=== PATIENT | male | born 1985 | race Caucasian/White ===

== ENCOUNTER 2017-01-02 01:11 | Inpatient (IN) | payer OTHER ==
[~2017-01-02] VITALS: Ht 182.9 cm; Wt 78.5 kg
[2017-01-02 01:15] VITALS: BP 158/99; RESP 18
[2017-01-02 01:23] VITALS: Ht 182.9 cm; Wt 78.5 kg
[2017-01-02] MEDS ORDERED: ONDANSETRON 4 MG INJ IV PRN ×2 (02:00→08:00)
[2017-01-02] MEDS: morphine 2 MG INJ IV PRN ×4 (02:12→18:58)
[2017-01-02] MEDS: DEXTROSE 5%-0.45% NACL 1,000 ML IV SCH ×4 (02:12→22:00)
[2017-01-02 02:44] VITALS: BP 100/59; RESP 18
[2017-01-02] MEDS ORDERED: LORAZEPAM 2 MG INJ IV ONE ×2 (03:30→22:30)
[2017-01-02] MEDS ORDERED: ONDANSETRON INJ 8 MG in DEXTROSE 5% 50 ML IV ONE (03:30)
[2017-01-02] MEDS: PIPER-TAZO 3.375 GM IV (PMX) 50 ML IVPB SCH ×2 (05:22→14:37)
[2017-01-02 05:38] LABS: BASOPHILS % 0.2 % (0.0-2.0); HEMATOCRIT 43.8 % (42.0-52.0); HEMOGLOBIN 14.2 g/dl (14.0-18.0); LYMPHOCYTES # 1.3 10^3/ul (0.8-2.9); LYMPHOCYTES % 9.2 % (15.0-51.0); MEAN CORPUSCULAR HEMOGLOBIN 22.8 pg (29.0-33.0); MEAN CORPUSCULAR HGB CONC 32.4 g/dl (32.0-37.0); MEAN CORPUSCULAR VOLUME 70.3 fl (82.0-101.0); MEAN PLATELET VOLUME 10.2 fl (7.4-10.4); MONOCYTE # 0.7 10^3/ul (0.3-0.9); MONOCYTES % 5.3 % (0.0-11.0); NEUTROPHIL # 11.6 10^3/ul (1.6-7.5); NEUTROPHILS % 84.9 % (39.0-77.0); PLATELET COUNT 286 10^3/UL (140-415); RED BLOOD COUNT 6.23 10^6/ul (4.70-6.10); RED CELL DISTRIBUTION WIDTH 13.8 % (11.5-14.5); WHITE BLOOD COUNT 13.7 10^3/ul (4.8-10.8)
[2017-01-02 06:04] LABS: ALBUMIN/GLOBULIN RATIO 1.33; BILIRUBIN,INDIRECT 0.3 mg/dl (0-1.1); BILIRUBIN,TOTAL 0.3 mg/dl (0.2-1.3); CALCIUM 9.1 mg/dl (8.4-10.2); CREATININE 1.22 mg/dl (0.61-1.24); MAGNESIUM 1.8 mg/dl (1.7-2.5); POTASSIUM 4.3 mmol/L (3.5-5.1)
--- NOTE | 2017-01-02 07:33 | HP ---
Date/Time of Note Date/Time of Note DATE: 01/02/17 TIME: 07:29 Assessment/Plan VTE Prophylaxis VTE Prophylaxis Intervention: SCD's Lines/Catheters IV Catheter Type (from Nrsg): Peripheral IV Assessment/Plan Assessment/Plan ASSESSMENT 31-year-old male with abdominal pain, nonbloody nonbilious vomiting and diarrhea , likely secondary to viral gastroenteritis. Unlikely from possible partial SBO seen on outside CT. PLAN Keep n.p.o. with IV fluid for now Provide pain medications and antiemetics Will order KUB and small bowel follow-through Consider surgery consult depending on above results HPI/ROS Admit Date/Time Admit Date/Time Jan 02, 2017 at 01:11 Hx of Present Illness This is a 31-year-old male who initially presented to [facility] complaining of abdominal pain, nausea, vomiting, diarrhea. Vomiting is described as nonbilious nonbloody and diarrhea was watery with no blood. Abdominal pain is diffuse. He denied distention. He said a few days ago, he is a roommate in him started having "flu", which he described as nasal congestion and cough. A day or two later, he started having the abdominal pain , diarrhea and vomiting as described earlier. Last diarrhea was yesterday. CT abdomen pelvis at the outside hospital showed probable partial small bowel obstruction. He was transferred to [facility] because of insurance reasons. Once he was admitted, he continued to have nausea and has had one episode of vomiting. PMH/Family/Social Social History Smoking Status: Never smoker Exam/Review of Systems Vital Signs Vitals Vital Signs Date Time Temp Pulse Resp B/P Pulse Ox O2 Delivery O2 Flow Rate FiO2 01/02/17 02:44 98.5 92 18 100/59 99 Intake and Output 01/01/17 01/01/17 01/02/17 15:00 23:00 07:00 Intake Total 558 ml Balance 558 ml Exam Constitutional: other (Looks mildly uncomfortable) Head: atraumatic, normocephalic Eyes: EOMI, PERRL Respiratory: clear to auscultation, normal air movement Cardiovascular: nl pulses, regular rate and rhythm Gastrointestinal: soft, tender Extremities: normal pulses Labs Result Diagram: 01/02/1751601/02/17516 Medications Medications Current Medications Dextrose/Sodium Chloride (D5-1/2ns) 1,000 ml @ 100 mls/hr Q10H IV Last administered on 01/02/17 02:12; Admin Dose 100 MLS/HR; Start 01/02/17 at 02:00 Morphine Sulfate 2 mg 2 mg Q4H PRN IV PAIN Last administered on 01/02/17 02:12 ; Admin Dose 2 MG; Start 01/02/17 at 02:00 Piperacillin Sod/ Tazobactam Sod 50 ml @ 100 mls/hr Q8 IVPB Last administered on 01/02/17 05:22; Admin Dose 100 MLS/HR; Start 01/02/17 at 06:00 Ondansetron HCl/ Dextrose (Zofran Inj/D5W) 54 ml @ 108 mls/hr Q6H PRN IV NAUSEA AND/OR VOMITING; Start 01/02/17 at 08:00 NIMA HERNÁNDEZ MD Jan 02, 2017 07:33
[2017-01-02 08:01] VITALS: BP 146/97; RESP 20
[2017-01-02] MEDS: ONDANSETRON INJ 8 MG in DEXTROSE 5% 50 ML IV PRN ×2 (09:03→20:07)
--- NOTE | 2017-01-02 09:14 | RADRPT ---
PROCEDURE: XR Abdomen. CLINICAL INDICATION: Abdomen pain. TECHNIQUE: AP supine abdomen x-ray. COMPARISON: None. FINDINGS: The bowel gas pattern is normal. There is no evidence of obstruction. There are no abnormal calcifications overlying the urinary tracts. The osseus structures are unremarkable. IMPRESSION: 1. Unremarkable abdomen radiograph. RPTAT: QQ .Trevon Smith MD, MD Date Time Electronically viewed and signed by .Trevon Smith MD, MD on 01/02/2017 09:14 .R/
[2017-01-02] MEDS: PROCHLORPERAZINE 10 MG INJ IV PRN ×2 (12:29→19:16)
--- NOTE | 2017-01-02 15:37 | PN ---
Date/Time of Note Date/Time of Note DATE: 01/02/17 TIME: 15:35 Assessment/Plan VTE Prophylaxis VTE Prophylaxis Intervention: SCD's Lines/Catheters IV Catheter Type (from Nrsg): Peripheral IV Assessment/Plan Assessment/Plan 1. acute gastroenteritis, likely viral, improving, protonix/IVF, start liquid diet Subjective 24 Hr Interval Summary Free Text/Dictation no diarrhea today, no vomiting. still has abdominal pain. no fever or chills Exam/Review of Systems Vital Signs Vitals Vital Signs Date Time Temp Pulse Resp B/P Pulse Ox O2 Delivery O2 Flow Rate FiO2 01/02/17 08:01 99.0 75 20 146/97 97 Intake and Output 01/01/17 01/01/17 01/02/17 15:00 23:00 07:00 Intake Total 558 ml Balance 558 ml Exam Constitutional: alert, oriented, well developed Psych: nl mood/affect, no complaints Head: atraumatic, normocephalic Eyes: EOMI, nl conjunctiva, nl lids ENMT: nl external ears & nose, nl lips & teeth, nl nasal mucosa & septum Neck: non-tender, supple Respiratory: clear to auscultation, normal air movement, No congested cough, No crackles/rales, No diminished breath sounds, No intercostal retraction, No labored breathing, No other, No respirations, No tactile fremitus, No wheezing Cardiovascular: nl pulses, regular rate and rhythm, No S3, No S4, No bruits, No diastolic murmur, No edema, No gallop, No irregular rhythm, No jugular venous distention (JVD), No murmurs/extra sounds, No other, No rub, No systolic murmur Gastrointestinal: nl liver, spleen, soft Musculoskeletal: nl extremities to inspection Extremities: normal pulses, No calf tenderness, No clubbing, No cyanosis, No edema, No other, No palpable cord, No pitting pedal edema, No tenderness Neurological: COMMUNITY ADMINISTRATOR II-XII intact, nl mental status, nl speech, nl strength Skin: nl turgor Lymph: nl lymph nodes Results Result Diagram: 01/02/1717 01/02/1717 Results 24 hrs Laboratory Tests Test 01/02/17 05:17 White Blood Count 13.7 H Red Blood Count 6.23 H Hemoglobin 14.2 Hematocrit 43.8 Mean Corpuscular Volume 70.3 L Mean Corpuscular Hemoglobin 22.8 L Mean Corpuscular Hemoglobin Concent 32.4 Red Cell Distribution Width 13.8 Platelet Count 286 Mean Platelet Volume 10.2 Neutrophils % 84.9 H Lymphocytes % 9.2 L Monocytes % 5.3 Eosinophils % 0.0 Basophils % 0.2 Nucleated Red Blood Cells % 0.0 Neutrophils # 11.6 H Lymphocytes # 1.3 Monocytes # 0.7 Eosinophils # 0.0 Basophils # 0.0 Nucleated Red Blood Cells # 0.0 Sodium Level 143 Potassium Level 4.3 Chloride Level 108 Carbon Dioxide Level 26 Anion Gap 13 Blood Urea Nitrogen 14 Creatinine 1.22 Glucose Level 135 Calcium Level 9.1 Phosphorus Level 3.0 Magnesium Level 1.8 Total Bilirubin 0.3 Direct Bilirubin 0.00 Indirect Bilirubin 0.3 Aspartate Amino Transf (AST/SGOT) 41 Alanine Aminotransferase (ALT/SGPT) 48 Alkaline Phosphatase 56 Total Protein 7.0 Albumin 4.0 Globulin 3.00 Albumin/Globulin Ratio 1.33 Medications Medications Current Medications Dextrose/Sodium Chloride (D5-1/2ns) 1,000 ml @ 100 mls/hr Q10H IV Last administered on 01/02/17 14:37; Admin Dose 100 MLS/HR; Start 01/02/17 at 02:00 Morphine Sulfate 2 mg 2 mg Q4H PRN IV PAIN Last administered on 01/02/17 12:44 ; Admin Dose 2 MG; Start 01/02/17 at 02:00 Piperacillin Sod/ Tazobactam Sod 50 ml @ 100 mls/hr Q8 IVPB Last administered on 01/02/17 14:37; Admin Dose 100 MLS/HR; Start 01/02/17 at 06:00 Ondansetron HCl/ Dextrose (Zofran Inj/D5W) 54 ml @ 108 mls/hr Q6H PRN IV NAUSEA AND/OR VOMITING Last administered on 01/02/17 09:03; Admin Dose 108 MLS/ HR; Start 01/02/17 at 08:00 Prochlorperazine (Compazine Inj) 5 mg Q6 PRN IV NAUSEA AND/OR VOMITING Last administered on 01/02/17 12:29; Admin Dose 5 MG; Start 01/02/17 at 12:30 MELO WOLF MD Jan 02, 2017 15:37
[2017-01-02] MEDS: LEVOFLOXACIN 250MG/D5W (PMX) 50 ML IVPB SCH (17:05)
[2017-01-02 20:34] VITALS: BP 150/82; RESP 18
[2017-01-02] MEDS: METOCLOPRAMIDE 10 MG INJ IV PRN (22:34)
[2017-01-03 03:28] VITALS: BP 109/58; RESP 18
[2017-01-03] MEDS: PANTOPRAZOLE (EC) 40 MG TAB PO SCH (05:11)
[2017-01-03] MEDS: METOCLOPRAMIDE 10 MG INJ IV PRN ×2 (05:12→13:48)
[2017-01-03] MEDS: DEXTROSE 5%-0.45% NACL 1,000 ML IV SCH ×2 (05:12→17:13)
[2017-01-03] MEDS: morphine 2 MG INJ IV PRN ×4 (05:12→20:24)
[2017-01-03 06:38] LABS: CALCIUM 8.7 mg/dl (8.4-10.2); CREATININE 1.17 mg/dl (0.61-1.24); MAGNESIUM 1.9 mg/dl (1.7-2.5); POTASSIUM 3.8 mmol/L (3.5-5.1)
[2017-01-03 07:47] VITALS: BP 113/55; RESP 16
[2017-01-03] MEDS ORDERED: DIATR MEGLU/DIATRIZOATE SODIUM 120 ML BTL ONE (08:58)
--- NOTE | 2017-01-03 10:21 | RADRPT ---
PROCEDURE: Small bowel follow-through. CLINICAL INDICATION: Abdomen pain. TECHNIQUE: Water-soluble contrast was administered orally and several overhead radiographs of the abdomen were obtained. 8 images were obtained. COMPARISON: Abdomen radiograph dated 01/02/2017. FINDINGS: The preliminary radiograph is normal. There is no small bowel displacement or mass. The small bowel folds are normal. There is no evidence of obstruction. Transit time is normal with contrast in the colon at 1 hour. The 1 hour image demonstrates most of the contrast in the distal ileum and colon.. IMPRESSION: 1. Normal small bowel follow-through. RPTAT: QQ .Trevon Smith MD, MD Date Time Electronically viewed and signed by .Trevon Smith MD, on 01/03/2017 10:20 .R/
[2017-01-03] MEDS: PROCHLORPERAZINE 10 MG INJ IV PRN ×2 (10:30→15:54)
[2017-01-03 14:14] VITALS: BP 131/86; RESP 16
--- NOTE | 2017-01-03 14:26 | PN ---
Date/Time of Note Date/Time of Note DATE: 01/03/17 TIME: 14:25 Assessment/Plan VTE Prophylaxis VTE Prophylaxis Intervention: SCD's Lines/Catheters IV Catheter Type (from Nrsg): Peripheral IV Assessment/Plan Assessment/Plan 1. acute gastroenteritis, likely viral, improving, protonix/IVF, keep liquid diet Subjective 24 Hr Interval Summary Free Text/Dictation vomited this morning, still nausea. no diarrhea Exam/Review of Systems Vital Signs Vitals Vital Signs Date Time Temp Pulse Resp B/P Pulse Ox O2 Delivery O2 Flow Rate FiO2 01/03/17 14:14 98.0 63 16 131/86 96 Intake and Output 01/02/17 01/02/17 01/03/17 15:00 23:00 07:00 Intake Total 154 ml 1200 ml Output Total 700 ml Balance 154 ml 500 ml Exam Constitutional: alert, oriented, well developed Psych: nl mood/affect, no complaints Head: atraumatic, normocephalic Eyes: EOMI, PERRL, nl conjunctiva, nl lids, nl sclera ENMT: mucosa pink and moist, nl external ears & nose, nl lips & teeth, nl nasal mucosa & septum Neck: non-tender, supple Respiratory: clear to auscultation, normal air movement, No congested cough, No crackles/rales, No diminished breath sounds, No intercostal retraction, No labored breathing, No other, No respirations, No tactile fremitus, No wheezing Cardiovascular: nl pulses, regular rate and rhythm, No S3, No S4, No bruits, No diastolic murmur, No edema, No gallop, No irregular rhythm, No jugular venous distention (JVD), No murmurs/extra sounds, No other, No rub, No systolic murmur Gastrointestinal: nl liver, spleen, soft, tender (mild diffuse tenderness) Musculoskeletal: nl extremities to inspection Extremities: normal pulses, No calf tenderness, No clubbing, No cyanosis, No edema, No other, No palpable cord, No pitting pedal edema, No tenderness Neurological: DIRECTOR OF PHYSICAL EDUCATION II-XII intact, nl mental status, nl speech Skin: nl turgor Results Result Diagram: 01/02/17 0517 01/03/17 0456 Results 24 hrs Laboratory Tests Test 01/03/17 04:56 Sodium Level 142 Potassium Level 3.8 Chloride Level 103 Carbon Dioxide Level 29 Anion Gap 14 Blood Urea Nitrogen 10 Creatinine 1.17 Glucose Level 107 Calcium Level 8.7 Magnesium Level 1.9 Medications Medications Current Medications Dextrose/Sodium Chloride (D5-1/2ns) 1,000 ml @ 100 mls/hr Q10H IV Last administered on 01/03/17 05:12; Admin Dose 100 MLS/HR; Start 01/02/17 at 02:00 Morphine Sulfate 2 mg 2 mg Q4H PRN IV PAIN Last administered on 01/03/17 10:30 ; Admin Dose 2 MG; Start 01/02/17 at 02:00 Ondansetron HCl/ Dextrose (Zofran Inj/D5W) 54 ml @ 108 mls/hr Q6H PRN IV NAUSEA AND/OR VOMITING Last administered on 01/02/17 20:07; Admin Dose 108 MLS/ HR; Start 01/02/17 at 08:00 Prochlorperazine 5 mg 5 mg Q6 PRN IV NAUSEA AND/OR VOMITING Last administered on 01/03/17 10:30; Admin Dose 5 MG; Start 01/02/17 at 12:30 Levofloxacin/ Dextrose (Levaquin 250 Mg/ D5W 50 ml (Pmx)) 50 ml @ 50 mls/hr Q24H IVPB Last administered on 01/02/17 17:05; Admin Dose 50 MLS/HR; Start at 16:00 Pantoprazole (Protonix Tab) 40 mg DAILY@06 PO Last administered on 01/03/17 05 :11; Admin Dose 40 MG; Start 01/03/17 at 06:00 Metoclopramide HCl (Reglan) 10 mg Q6H PRN IV NAUSEA AND/OR VOMITING Last administered on 01/03/17 13:48; Admin Dose 10 MG; Start 01/02/17 at 22:30 MELO WOLF MD Jan 03, 2017 14:26
[2017-01-03] MEDS: LEVOFLOXACIN 250MG/D5W (PMX) 50 ML IVPB SCH (15:51)
[2017-01-03] MEDS: ONDANSETRON INJ 8 MG in DEXTROSE 5% 50 ML IV PRN (18:46)
[2017-01-03 20:00] VITALS: BP 156/86; RESP 20
[2017-01-04] MEDS: PROCHLORPERAZINE 10 MG INJ IV PRN ×2 (00:46→04:59)
[2017-01-04] MEDS: morphine 2 MG INJ IV PRN ×4 (00:48→12:58)
[2017-01-04 02:00] VITALS: BP 143/81; RESP 20
[2017-01-04] MEDS: DEXTROSE 5%-0.45% NACL 1,000 ML IV SCH ×2 (04:16→14:00)
[2017-01-04] MEDS: PANTOPRAZOLE (EC) 40 MG TAB PO SCH (04:52)
[2017-01-04 05:32] LABS: BASOPHILS % 0.3 % (0.0-2.0); EOSINOPHILS % 0.1 % (0.0-7.0); HEMOGLOBIN 13.2 g/dl (14.0-18.0); LYMPHOCYTES # 2.2 10^3/ul (0.8-2.9); LYMPHOCYTES % 18.3 % (15.0-51.0); MEAN CORPUSCULAR HEMOGLOBIN 22.7 pg (29.0-33.0); MEAN CORPUSCULAR HGB CONC 32.2 g/dl (32.0-37.0); MEAN CORPUSCULAR VOLUME 70.6 fl (82.0-101.0); MEAN PLATELET VOLUME 10.7 fl (7.4-10.4); MONOCYTE # 0.7 10^3/ul (0.3-0.9); NEUTROPHILS % 75.1 % (39.0-77.0); PLATELET COUNT 251 10^3/UL (140-415); RED BLOOD COUNT 5.81 10^6/ul (4.70-6.10); RED CELL DISTRIBUTION WIDTH 13.6 % (11.5-14.5)
[2017-01-04 05:58] LABS: CALCIUM 8.5 mg/dl (8.4-10.2); POTASSIUM 3.4 mmol/L (3.5-5.1)
[2017-01-04 08:00] VITALS: BP 133/66; RESP 19
[2017-01-04] MEDS: METOCLOPRAMIDE 10 MG INJ IV PRN (12:58)
[2017-01-04 14:00] VITALS: BP 139/87; RESP 18
[2017-01-04] MEDS ORDERED: PANT40TA3 PO (14:27)
[2017-01-04] MEDS ORDERED: PROC5VIA4 IV (14:27)
--- NOTE | 2017-01-04 14:31 | DS ---
Date/Time of Note Date/Time of Note DATE: 01/04/17 TIME: 14:28 Discharge Summary Admission/Discharge Info Admit Date/Time Jan 02, 2017 at 01:11 Discharge Date/Time Discharge Diagnosis 1. acute gastroenteritis, likely viral, improved, protonix with compazine prn Patient Condition: Stable Hospital Course This is a 31-year-old male who initially presented to [facility] complaining of abdominal pain, nausea, vomiting, diarrhea. Vomiting is described as nonbilious nonbloody and diarrhea was watery with no blood. Abdominal pain is diffuse. He denied distention. He said a few days ago, he is a roommate in him started having "flu", which he described as nasal congestion and cough. A day or two later, he started having the abdominal pain , diarrhea and vomiting as described earlier. Last diarrhea was yesterday. CT abdomen pelvis at the outside hospital showed probable partial small bowel obstruction. He was transferred to [facility] because of insurance reasons. Once he was admitted, he continued to have nausea and has had one episode of vomiting. Physical exam with diffuse abdominal tenderness. KUB and small bowel follow through negative for bowel obstruction. Patient is treated with IVF, protonix, and levaquin for acute gastroenteritis. Symptoms improved. Patient only has some nausea today. He will be discharged with protonix and compazine prn. Home Meds Active Scripts Pantoprazole* (Protonix*) 40 Mg Tablet.dr, 40 MG PO DAILY for 30 Days, TAB Prov:MELO WOLF MD 01/04/17 Prochlorperazine Edisylate* (Prochlorperazine Edisylate*) 5 Mg/1 Ml Vial, 5 MG IV Q6H Y for NAUSEA AND/OR VOMITING, #20 VIAL Prov:MELO WOLF MD 01/04/17 Follow-up Plan PCP in one week Primary Care Provider Care Physician No Primary Pending Labs Laboratory Tests Test 01/04/17 04:46 White Blood Count 12.010^3/ul (4.8-10.8) Red Blood Count 5.8110^6/ul (4.70-6.10) Hemoglobin 13.2g/dl (14.0-18.0) Hematocrit 41.0% (42.0-52.0) Mean Corpuscular Volume 70.6fl (82.0-101.0) Mean Corpuscular Hemoglobin 22.7pg (29.0-33.0) Mean Corpuscular Hemoglobin Concent 32.2g/dl (32.0-37.0) Red Cell Distribution Width 13.6% (11.5-14.5) Platelet Count 08250^3/UL (140-415) Mean Platelet Volume 10.7fl (7.4-10.4) Neutrophils % 75.1% (39.0-77.0) Lymphocytes % 18.3% (15.0-51.0) Monocytes % 6.0% (0.0-11.0) Eosinophils % 0.1% (0.0-7.0) Basophils % 0.3% (0.0-2.0) Nucleated Red Blood Cells % 0.0/100WBC (0.0-0.0) Neutrophils # 9.010^3/ul (1.6-7.5) Lymphocytes # 2.210^3/ul (0.8-2.9) Monocytes # 0.710^3/ul (0.3-0.9) Eosinophils # 0.010^3/ul (0.0-0.5) Basophils # 0.010^3/ul (0.0-0.1) Nucleated Red Blood Cells # 0.010^3/ul (0.0-0.0) Sodium Level 139mmol/L (135-144) Potassium Level 3.4mmol/L (3.5-5.1) Chloride Level 101mmol/L (97-110) Carbon Dioxide Level 28mmol/L (21-31) Anion Gap 13 (8-16) Blood Urea Nitrogen 7mg/dl (7-20) Creatinine 1.00mg/dl (0.61-1.24) Glucose Level 113mg/dl (70-220) Calcium Level 8.5mg/dl (8.4-10.2) MELO WOLF MD Jan 04, 2017 14:31
== END 2017-01-04 16:06 | disposition home or self-care (01) | DRG 392 ==
LOC: PP2 01:11
PROVIDERS: ADMIT Internal Medicine; ATTEND Internal Medicine
DX: A08.4 Viral intestinal infection, unspecified (principal)
CPT/HCPCS: 74000; 74250; 80048; 80053; 83735; 84100; 85025; 87045; 87075; J0780; J1956; J2060; J2270; J2405; J2543; J2765; J7042

== ENCOUNTER 2017-04-13 19:52 | Observation (INO) | END 2017-04-14 16:20 | disposition left against medical advice (07) ==

== ENCOUNTER 2017-06-03 12:18 | Emergency (ER) | END 2017-06-03 18:03 | disposition home or self-care (01) ==